=== PATIENT | female | born 1945 | race Caucasian/White ===

== ENCOUNTER → 2020-06-20 09:59 | Outpatient (CLI) | payer MEDICARE, SELFPAY ==
--- NOTE | ~2020-06-20 | MM_ITS ---
EXAMINATION: MM screening [place] [facility] w nicole HISTORY: Screening TECHNIQUE: Craniocaudal and mediolateral oblique 3-D tomosynthesis images were obtained and synthetic 2-D images were generated. CAD analysis was submitted and interpreted. COMPARISON: 11/19/2013 BREAST PARENCHYMAL COMPOSITION: There are scattered areas of fibroglandular density. FINDINGS: There is no evidence of suspicious mass, calcification, or architectural distortion to sugg est malignancy in either breast. There has been no suspicious interval change. IMPRESSION: 1. No mammographic evidence of malignancy. 2. Recommend routine screening mammography in one year. BI-RADS Category 1: Negative Reviewed, dictated and finalized at location A.
--- NOTE | ~2020-06-20 | DEXA_ITS ---
Bone Density Report Name: Shaila Alfredo Age: 74 Sex: Female Ethnicity: White Date of : 1945 Indication: postmenopausal; screening for osteoporosis; Referring Provider: MARLENY*, DARIUS Kaye Study: Bone densitometry was performed. Exam Date: June 20, 2020 Accession number: [id number] Bone Density: Region BMD T-score Z-score Classification AP Spine (L1-L4) 0.946 -0.9 1.3 Normal Femoral Neck (Left) 0.631 -2.0 0.0 Osteopenia Total Hip (Left) 0.876 -0.5 1.1 Normal Femoral Neck (Right) 0.588 -2.4 -0.4 Osteopenia Total Hip (Right) 0.785 -1.3 0.4 Osteopenia Total Hip Mean 0.831 -0.9 0.8 Normal World Health Organization criteria for BMD impression classify patients as: Normal (T-score at or above -1.0), Osteopenia (T-score between -1.0 and -2.5), or Osteoporosis (T-score at or below -2.5). 10-year Fracture Risk(1): Major Osteoporotic Fracture 13% Hip Fracture 3.4% Reported Risk Factors: [place] (), Neck BMD=0.588, BMI=35.0 (1) FRAX(R) Version 3.08. Fracture probability calculated for an untreated patient. Fracture probability may be lower if the patient has received treatment. Previous Exams: Region Exam Age BMD T-score BMD Change BMD Change Date g/cm2 vs Baseline vs Previous AP Spine(L1-L4) 06/20/2020 74 0.946 -0.9 0.003 0.003 11/19/2013 68 0.943 -0.9 Total Hip(Left) 06/20/2020 74 0.876 -0.5 -0.084* -0.084* 11/19/2013 68 0.959 0.1 Total Hip(Right) 06/20/2020 74 0.785 -1.3 -0.117* -0.117* 11/19/2013 68 0.902 -0.3 *Denotes significance at 95% confidence level, LSC for AP Spine = 0.022 g/cm2, LSC for Total Hip = 0.027 g/cm2 Clinical Information Provided by Patient: Patient maximum height was 60 Menopause Age: 52 No regular weight bearing exercise Does not regularly consume dairy products Drinks caffeinated beverages Onset of menses at age 16 Number of children 1 Impression: The patient has low bone mass, based on the Right Femoral Neck T-score. The patient has an estimated ten-year risk of hip fracture of 3.4% and an estimated ten-year risk of major fracture of 13%, based on the WHO FRAX algorithm. The BMD for the Total Hip(Left) decreased, changing by -0.084 since the last DXA exam. The BMD for the Total Hip(Right) decreased, changing by -0.117 since the last DXA exam. Discussion: BONE DENSITY IS LOW AT ONE OR MORE SKELETAL SITES. THE PATIENT'S
== END ==
PROVIDERS: PCP Internal Medicine; Visit Provider Internal Medicine
DX: Z12.31 Encounter for screening mammogram for malignant neoplasm of breast (principal); Z78.0 Asymptomatic menopausal state; M85.852 Other specified disorders of bone density and structure, left thigh; M85.851 Other specified disorders of bone density and structure, right thigh
CPT/HCPCS: 77063; 77067; 77080

== ENCOUNTER 2023-08-14 12:00 | Outpatient (CLI) | payer MEDICARE, SELFPAY ==
--- NOTE | ~2023-08-14 | DEXA_ITS ---
Bone Density Report Name: YANA COATS Age: 77 Sex: Female Ethnicity: White Date of : 1945 Indication: osteopenia; Referring Provider: VIKI, DARIUS Kaye Study: Bone densitometry was performed. Exam Date: August 14, 2023 Accession number: [id number] Bone Density: Region BMD T-score Z-score Classification AP Spine (L1-L4) 0.951 -0.9 1.6 Normal Femoral Neck (Left) 0.603 -2.2 -0.1 Osteopenia Total Hip (Left) 0.802 -1.1 0.7 Osteopenia Femoral Neck (Right) 0.570 -2.5 -0.4 Osteoporosis Total Hip (Right) 0.751 -1.6 0.3 Osteopenia Total Hip Mean 0.777 -1.4 0.5 Osteopenia World Health Organization criteria for BMD impression classify patients as: Normal (T-score at or above -1.0), Osteopenia (T-score between -1.0 and -2.5), or Osteoporosis (T-score at or below -2.5). 10-year Fracture Risk: FRAX not reported because: Some T-score for Spine Total or Hip Total or Femoral Neck at or below -2.5 Previous Exams: Region Exam Age BMD T-score BMD Change BMD Change Date g/cm2 vs Baseline vs Previous AP Spine(L1-L4) 08/14/2023 77 0.951 -0.9 0.008 0.005 06/20/2020 74 0.946 -0.9 0.003 0.003 11/19/2013 68 0.943 -0.9 Total Hip(Left) 08/14/2023 77 0.802 -1.1 -0.157* -0.074* 06/20/2020 74 0.876 -0.5 -0.084* -0.084* 11/19/2013 68 0.959 0.1 Total Hip(Right) 08/14/2023 77 0.751 -1.6 -0.151* -0.034* 06/20/2020 74 0.785 -1.3 -0.117* -0.117* 11/19/2013 68 0.902 -0.3 *Denotes significance at 95% confidence level, LSC for AP Spine = 0.022 g/cm2, LSC for Total Hip = 0.027 g/cm2 Clinical Information Provided by Patient: Has used the following medications: HRT (i.e. estrogen/hormone therapy), Vitamin D, Calcium, MTV, LEVOTHYROXINE Patient maximum height was 59.5 Menopause Age: 52 Drinks caffeinated beverages Onset of menses at age 16 Number of children 1 Impression: The patient has osteoporosis, based on the Right Femoral Neck T-score. The BMD for the Total Hip(Left) decreased, changing by -0.074 since the last DXA exam. The BMD for the Total Hip(Right) decreased, changing by -0.034 since the last DXA exam. Discussion: INCREASED RISK OF FRACTURE. BONE DENSITY IS UNDESIRABLY LOW AT ONE OR MORE SKELETAL SITES, CONSISTENT WITH POSTMENOPAUSAL OSTEOPOROSIS. This patient's lowest T-score meets the World Health Organization's (WHO) criteria for osteoporosis at one or more sites (T-score -2.5 or below). In untreated pa
== END 2023-08-14 12:01 ==
LOC: MICIMG 12:01
PROVIDERS: PCP Internal Medicine; Visit Provider Internal Medicine
DX: Z78.0 Asymptomatic menopausal state (principal); M85.89 Other specified disorders of bone density and structure, multiple sites; M81.0 Age-related osteoporosis without current pathological fracture
CPT/HCPCS: 77080